=== PATIENT | male | born 1985 | race African-American/Black ===

== ENCOUNTER 2017-12-04 04:25 | Inpatient (IN) ==
[2017-12-04] MEDS ORDERED: ONDANSETRON 4 MG/2 ML VIAL IV PRN (06:37)
[2017-12-04] MEDS ORDERED: SODIUM CHLORIDE 0.9% 1,000 ML IV SCH (07:00)
[2017-12-04 07:29] LABS: Basophils % 0.6 % (0.0-0.8); Eosinophils % 0.6 % (0.00-10.9); Hematocrit 46.1 VOL% (42.0-52.0); Hemoglobin 15.1 GM/DL (14.0-18.0); Immature Granulocytes % 0.3 %; Immature Granulocytes Absolute 0.01 #; Lymphocytes # 1.1 10*3/uL (1.4-4.0); Lymphocytes % 29.9 % (21.2-54.2); Mean Corpuscular HGB Conc 32.8 GM/DL (32-36); Mean Corpuscular Hemoglobin 29 PG (27-34); Mean Corpuscular Volume 89.7 FL (87-102); Mean Platelet Volume 11.8 FL (9.6-12.0); Monocytes # 0.3 10*3/uL (0.11-0.8); Monocytes % 8.3 % (1.7-12.7); Neutrophils # 2.2 10*3/uL (1.4-7.4); Neutrophils % 60.3 % (38.7-73.9); Platelet Count 172 T/CUMM (130-400); Red Blood Count 5.14 MC/CUMM (3.8-5.5); Red Cell Distribution Width 12.7 % (9.3-17.3); White Blood Count 3.6 T/CUMM (4-12)
[2017-12-04 07:54] LABS: Albumin 4.5 G/DL (3.4-5.0); Calcium 9.9 MG/DL (8.5-10.1); Osmolality,Calculated 279.4 MOS/KG (273-304); Potassium 4.3 MMOL/L (3.5-5.1); Thyroid Stimulating Hormone 2.89 uIU/ml (0.358-3.74); Total Protein 8.1 G/DL (6.4-8.3)
[2017-12-04 07:58] LABS: Troponin I Only < 0.015 NG/ML (0.00-0.045)
[2017-12-04] MEDS: DOCUSATE SODIUM 100 MG CAPSULE PO SCH ×2 (09:27→20:31)
[2017-12-04] MEDS: PANTOPRAZOLE 40 MG TABLET PO SCH (09:28)
[2017-12-04] MEDS: ENOXAPARIN 40 MG/0.4 ML SYRINGE SUBCUT SCH (09:28)
[2017-12-04] MEDS ORDERED: OSELTAMIVIR 75 MG CAPSULE PO SCH (10:00)
[2017-12-04 10:12] LABS: Apearance,Urine CLEAR (Clear); Bilirubin,Urine Negative (Negative); Blood, Urine Negative (Negative); Glucose,Urine (UA) Negative (Negative); Ketones,Urine 5 mg/dL (Negative); Mucus,Urine Occasional /LPF (Occasional); Nitrite,Urine Negative (Negative); Protein,Urine Negative; RBC,Urine 1 /HPF (0-4); Urine Color Yellow (Yellow); Urine Specific Gravity 1.027 (1.001-1.035); Urine Urobilinogen < 2.0 EU/DL (0.2-1.0); WBC,Urine <1 /HPF (0-6)
[2017-12-04 11:05] LABS: Barbiturates Screen,Urine Negative (Negative); Benzodiazepines Screen,Urine Negative (Negative); Cannabinoid Screen,Urine Negative (Negative); Opiate Screen,Urine Negative (Negative); Phencyclidine Screen,Urine Negative (Negative)
[2017-12-04] MEDS: SODIUM CHLORIDE 0.9% 1,000 ML IV SCH (17:59)
[2017-12-04] MEDS ORDERED: ZIPRASIDONE 20 MG/1 ML VIAL IM ONE (21:14)
[2017-12-05] MEDS: SODIUM CHLORIDE 0.9% 1,000 ML IV SCH ×2 (02:28→09:51)
[2017-12-05] MEDS ORDERED: SODIUM BICARB INJ 50 MEQ in SODIUM CHLORIDE 0.45% 1,000 ML IV SCH (10:00)
[2017-12-05 10:28] LABS: Calcium 9.4 MG/DL (8.5-10.1); Osmolality,Calculated 281.1 MOS/KG (273-304); Potassium 3.9 MMOL/L (3.5-5.1)
[2017-12-05] MEDS: ENOXAPARIN 40 MG/0.4 ML SYRINGE SUBCUT SCH (11:05)
[2017-12-05] MEDS: PANTOPRAZOLE 40 MG TABLET PO SCH (11:05)
[2017-12-05] MEDS: DOCUSATE SODIUM 100 MG CAPSULE PO SCH (11:05)
[2017-12-05 12:24] VITALS: BP 154/96
[2017-12-14 11:21] LABS: ACh Receptor (Muscle) Binding 0 nmol/L (<=0.02); AChR Ganglionic Neuronal Ab, S 0 nmol/L (<=0.02); CRMP-5-IgG, S Negative titer (<1:240); Striational (Striated Muscle) Negative titer (<1:120)
== END 2017-12-05 13:50 | disposition home or self-care (01) | DRG 71 ==
LOC: N.5E 05:22
PROVIDERS: ADMIT Hospitalist; ATTEND Hospitalist